=== PATIENT | male | born 1975 | race Caucasian/White ===

== ENCOUNTER 2017-04-02 09:53 | Emergency (ER) | payer OTHER ==
[~2017-04-02] VITALS: Ht 177.8 cm; Wt 102.1 kg
[~2017-04-02 09:53] MED LIST: AMOXICILLIN500 M1 PO; AUGMENTIN 875875 MG PO; HYDROCODON-ACE1 EAC7 PO; HYDROCODONE-AP1 EAC6 PO; METFORMIN HCL500 MG PO; NOHOMEMEDICATIONS; NORCO 5-325 TA1 EACH PO
[2017-04-02] MEDS ORDERED: CYCLOBENZAPRINE5 MG PO (10:10)
[2017-04-02] MEDS ORDERED: MOBIC15 MG PO (10:10)
[2017-04-02] MEDS ORDERED: NORCO 5-325 TA1 EACH PO (10:14)
== END 2017-04-02 11:31 | disposition home or self-care (01) ==
LOC: ER 09:53
DX: S16.1XXA Strain of muscle, fascia and tendon at neck level, initial encounter (principal); F10.99 Alcohol use, unspecified with unspecified alcohol-induced disorder; E11.9 Type 2 diabetes mellitus without complications; V89.2XXA Person injured in unspecified motor-vehicle accident, traffic, initial encounter; Y93.89 Activity, other specified; Y92.89 Other specified places as the place of occurrence of the external cause; Y99.8 Other external cause status

== ENCOUNTER 2017-12-20 02:46 | Emergency (ER) | payer OTHER ==
[~2017-12-20] VITALS: Ht 177.8 cm; Wt 102.1 kg
[~2017-12-20 02:46] MED LIST changes: +CYCLOBENZAPRINE5 MG PO; +MOBIC15 MG PO
[2017-12-20 03:21] LABS: URINE BILIRUBIN NEGATIVE (Negative); URINE BLOOD 3+ (Negative); URINE CLARITY CLEAR; URINE COLOR YELLOW; URINE GLUCOSE-RANDOM* NEGATIVE (Negative); URINE KETONES NEGATIVE (Negative); URINE LEUKOCYTES-REFLEX NEGATIVE (Negative); URINE NITRITE-REFLEX NEGATIVE (Negative); URINE PROTEIN (DIPSTICK) NEGATIVE (Negative); URINE SPECIFIC GRAVITY >= 1.030 (1.005-1.035); URINE UROBILINOGEN 0.2 E.U./dl (0.2-1.0)
[2017-12-20 03:29] LABS: BACTERIA-REFLEX 1-9 Few /HPF (None Seen); CASTS None Seen /LPF (None Seen); CRYSTALS None Seen /LPF (None Seen); MUCUS 0-3 Light strn/LPF (None Seen); SQUAMOUS None Seen /LPF (0-3); URINE WBC-REFLEX 0-5 Rare /HPF (0-5)
[2017-12-20 03:58] LABS: ABSOLUTE NEUTROPHILS 8.1 thou/uL (1.4-8.2); BASOPHILS 0.8 % (0.0-2.0); EOSINOPHILS 0.6 % (0.0-3.0); HEMATOCRIT 43.7 % (42.0-52.0); LYMPHOCYTES 20.1 % (24.0-44.0); MCH 29.6 pg (26.0-34.0); MCHC 34.4 g/dL (28.0-37.0); MCV 86.1 fL (80.0-100.0); MONOCYTES 8.1 % (1.0-8.0); PLATELET COUNT 232 thou/uL (150-400); POLYS 70.4 % (36.0-66.0); RBC 5.08 mil/uL (4.50-6.00); RDW 12.7 % (10.5-14.5); WBC 11.5 thou/uL (4.0-11.0)
[2017-12-20 04:05] LABS: CREATININE 1.2 mg/dL (0.7-1.3)
[2017-12-20] MEDS ORDERED: NORCO 5-325 TA1 EACH PO (04:37)
[2017-12-20] MEDS ORDERED: ZOFRAN ODT4 MG PO (04:37)
[2017-12-20] MEDS ORDERED: FLOMAX0.4 MG PO (04:37)
[2017-12-20] MEDS ORDERED: TORADOL 10 MG T10 MG PO (04:37)
[2017-12-20 05:28] VITALS: BP 123/67
== END 2017-12-20 05:29 | disposition home or self-care (01) ==
LOC: ER 02:46
PROVIDERS: Emergency Medicine
DX: N20.1 Calculus of ureter (principal); E11.9 Type 2 diabetes mellitus without complications; G47.30 Sleep apnea, unspecified

== ENCOUNTER 2019-05-24 17:24 | Emergency (ER) | payer OTHER ==
[~2019-05-24] VITALS: Ht 177.8 cm; Wt 99.8 kg
[~2019-05-24 17:24] MED LIST changes: +FLOMAX0.4 MG PO; +TORADOL 10 MG T10 MG PO; +ZOFRAN ODT4 MG PO
[2019-05-24 19:00] VITALS: BP 130/78
== END 2019-05-24 19:03 | disposition home or self-care (01) ==
LOC: ER 17:24
DX: S63.282A Dislocation of proximal interphalangeal joint of right middle finger, initial encounter (principal); Z79.899 Other long term (current) drug therapy; X50.1XXA Overexertion from prolonged static or awkward postures, initial encounter; Y93.89 Activity, other specified; Y92.831 Amusement park as the place of occurrence of the external cause; Y99.9 Unspecified external cause status